=== PATIENT | male | born 1970 | race Two or more races ===

== ENCOUNTER 2023-11-18 09:29 | Emergency (ER) | payer OTHER ==
[~2023-11-18] VITALS: Ht 170.2 cm; Wt 90.7 kg
[2023-11-18] MEDS ORDERED: HYDROCODONE/APAP 5/325MG TABLET ONE (09:59)
[2023-11-18] MEDS: oxyCODONE/APAP (5/325 MG) 1 UDTAB TABLET PO ONE (10:01)
[2023-11-18] MEDS ORDERED: OXYC-128 PO (11:03)
[2023-11-18 11:15] VITALS: BP 129/94; TEMP 98; O2SAT 99
== END 2023-11-18 11:16 | disposition home or self-care (01) ==
LOC: ER 09:40
DX: S97.82XA Crushing injury of left foot, initial encounter (principal); W23.0XXA Caught, crushed, jammed, or pinched between moving objects, initial encounter; Y93.89 Activity, other specified; Y92.89 Other specified places as the place of occurrence of the external cause; Y99.0 Civilian activity done for income or pay
CPT/HCPCS: 73630-TC